=== PATIENT | male | born 1985 | race Two or more races ===

== ENCOUNTER 2017-01-29 01:57 | Emergency (ER) | payer MEDICAID ==
[~2017-01-29] VITALS: Ht 162.6 cm; Wt 64.0 kg
[2017-01-29 02:31] VITALS: BP 135/85
== END 2017-01-29 06:39 | disposition left against medical advice (07) ==
LOC: ER 02:00
DX: K13.79 Other lesions of oral mucosa (principal); Z53.21 Procedure and treatment not carried out due to patient leaving prior to being seen by health care provider

== ENCOUNTER 2018-10-29 16:06 | Emergency (ER) | payer SELFPAY ==
[~2018-10-29] VITALS: Ht 165.1 cm; Wt 63.5 kg
[2018-10-29] MEDS ORDERED: LIDOCAINE 2% (LOCAL ANESTH.) PF 5ml SDV ONE (16:13)
[2018-10-29 18:16] VITALS: BP 140/78
== END 2018-10-29 18:27 | disposition home or self-care (01) ==
LOC: ER 16:06
DX: S11.91XA Laceration without foreign body of unspecified part of neck, initial encounter (principal); W26.9XXA Contact with unspecified sharp object(s), initial encounter; Y93.89 Activity, other specified; Y99.8 Other external cause status; Y92.89 Other specified places as the place of occurrence of the external cause
CPT/HCPCS: 12002; 99283; J2001

== ENCOUNTER 2018-11-07 18:28 | Emergency (ER) | payer SELFPAY ==
[~2018-11-07] VITALS: Ht 162.6 cm; Wt 68.0 kg
[2018-11-07 18:49] VITALS: BP 147/87
== END 2018-11-07 21:12 | disposition left against medical advice (07) ==
LOC: ER 18:28
DX: S11.91XD Laceration without foreign body of unspecified part of neck, subsequent encounter (principal); Z53.21 Procedure and treatment not carried out due to patient leaving prior to being seen by health care provider; X58.XXXD Exposure to other specified factors, subsequent encounter